=== PATIENT | male | born 1940 | race Caucasian/White ===

== ENCOUNTER → 2018-07-20 08:12 | Outpatient (CLI) | payer MEDICARE, OTHER, SELFPAY ==
--- NOTE | 2018-07-20 | DI.ECHO.S_ITS ---
[facility] +---------+ : : [address] : [place] : : : : [id number] : : : : Phone: [phone]+ Echocardiogram Report + + :Name: UMA MARTINEZ Study Date: 07/20/2018 Height: 70 in : :[facility] Exam Location: [place] Weight: 219 lb : : Gender: Male BSA: 2.2 m2 : :: 1940 Age: 78 yrs BP: 120/62 mmHg: :Reason For Study: CAD : :Ordering Physician: [place] : :Brittany Pedroza Performed By: Opal Leal : :Referring: RICHMOND SOOT : + + Interpretation Summary Left ventricular ejection fraction is estimated to be 55 +/- 5%. There is basal inferior wall hypokinesis. The right ventricle is mildly dilated. Right ventricular systolic function is mildly reduced. There is severe biatrial enlargement. There is mild mitral regurgitation. There is mild aortic valve sclerosis. There is mild tricuspid regurgitation. The right ventricular systolic pressure is estimated to be at least 30 mmHg based on an estimated right atrial pressure of 3 mm Hg. Left ventricular systolic function has moderately improved compared to the previous exam. Procedure: A two-dimensional transthoracic echocardiogram with color flow and Doppler was performed. Comparison is made with the echocardiogram of 01/04/13. The study quality was technically difficult. The patient was in atrial fibrillation with heart rates between 46 and 64 bpm during the exam. Left Ventricle: The left ventricle is normal in size. Trabeculae near apex are visualized. No thrombus is observed. The left ventricular ejection fraction is grossly normal. Left ventricular ejection fraction is estimated to be 55 +/- 5%. Left ventricular systolic function has moderately improved compared to the previous exam. There is basal inferior wall hypokinesis. Diastolic function could not be accurately assessed due to atrial fibrillation. Right Ventricle: The right ventricle is mildly dilated. Right ventricular systolic function is mildly reduced. Atria: The left atrium is severely dilated. There is severe biatrial enlargement. The right atrium is severely dilated. There is no Doppler evidence for an interatrial shunt. Mitral Valve: The mitral valve leaflets appear mildly thickened, but open well. There is mild mitral regurgitation. There are multiple regurgitant jets present. Aortic Valve: The aortic valve is trileaflet. There is mild aortic valve sclerosis. The aortic valve opens well. No aortic regurgitation is present. Tricuspid Valve: The tricuspid valve is normal. There is mild tricuspid regurgitation. The right ventricular systolic pressure is estimated to be at least 30 mmHg based on an estimated right atrial pressure of 3 mm Hg. Pulmonic Valve: The pulmonic valve leaflets are thin and pliable; valve motion is normal. There is trace pulmonic regurgitation. Great Vessels: The aortic root is mildly dilated. The ascending aorta is at the upper limits of normal in size. The aortic arch could not be visualized. The pulmonary artery is normal size. The IVC is of normal diameter and collapses greater than 50% with a sniff. This suggests a low right atrial pressure of 3 mm Hg. Pericardium/ Pleura There is no pericardial effusion. There is no pleural effusion. MMode/2D Measurements & Calculations LVIDd: 5.5 cm LVOT diam: 2.5 cm LVIDs: 3.9 cm Ao root diam: 3.9 cm FS: 29.2 % asc Aorta Diam: 3.6 cm EPSS: 0.54 cm IVSd: 1.2 cm LVPWd: 1.1 cm LV lynch. diameter/BSA (cm/m^2): 2.5 LV sys. diameter/BSA (cm/m^2): 1.8 LA A2 area: 39.2 cm2 RA long axis: 7.6 cm LA A4 area: 42.2 cm2 RA area: 36.9 cm2 LA length (vol): 7.9 cm RA vol: 152.4 ml LA vol: 178.3 ml RA : 70.3 ml/m2 LA vol index: 82.2 ml/m2 IVC diam: 1.5 cm RVD1 (basal): 4.9 cm RVD2 (mid): 3.2 cm TAPSE: 1.2 cm Doppler Measurements & Calculations Ao V2 max: 134.1 cm/sec LVOT Max Donovan: 104.1 cm/sec Ao V2 mean: 94.4 cm/sec LV V1 max P.3 mmHg Ao max P.2 mmHg LV V1 VTI: 21.9 cm Ao mean P.0 mmHg PINA(I,D): 3.6 cm2 Ao V2 VTI: 29.0 cm PINA(V,D): 3.7 cm2 sev ratio: 0.75 PINA indexed to BSA (cm^2/m^2): 1.7 MV E max donovan: 73.1 cm/sec TR max donovan: 259.5 cm/sec TR max P.0 mmHg PA V2 max: 73.1 cm/sec PA V2 mean: 49.1 cm/sec PA mean P.1 mmHg PA pr(Accel): 21.3 mmHg Reading Physician:09:21 AM
== END ==
PROVIDERS: Visit Provider Internal Medicine Cardiovascular Disease
DX: I08.3 Combined rheumatic disorders of mitral, aortic and tricuspid valves (principal); I25.10 Atherosclerotic heart disease of native coronary artery without angina pectoris
CPT/HCPCS: 93306